=== PATIENT | female | born 1975 | race African-American/Black ===

== ENCOUNTER 2017-08-15 17:04 | Emergency (ER) | payer MEDICAID, OTHER ==
[~2017-08-15] VITALS: Ht 154.9 cm; Wt 102.5 kg
[2017-08-15 17:34] VITALS: BP 211/136
[2017-08-15] MEDS ORDERED: HYDROcodone/Acetamin 10/325 tab ORAL ONE (17:45)
--- NOTE | 2017-08-15 17:53 | Emergency Room Report ---
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 [place] that her shoulder was sprained After going to urgent care for pain medicine she was told that her blood pressure was high and refer to the emergency room Denies any chest pain denies any mid back pain Denies any tearing type sensation Denies any focal weakness Denies any fevers or chills denies any fall or trauma Allergies: Coded Allergies: ACETAMINOPHEN (Verified Adverse Reaction, Unknown, Nausea, 08/15/17) CODEINE (Verified Adverse Reaction, Unknown, nausea, 08/15/17) HYDROCODONE (Verified Adverse Reaction, Unknown, Nausea, 08/15/17) Patient History Past Medical History: see triage record Pertinent Family History: none Last Menstrual Period: 08/14/17 Now: No : 3 Para: 1 Reviewed Nursing Documentation: PMH: Agreed; PSxH: Agreed Nursing Documentation-PMH Past Medical History: No History, Except For Hx Cardiac Problems: No - Hx Hypertension: Yes History Of Psychiatric Problem: Yes - ANXIETY Review of Systems All Other Systems: negative except mentioned in HPI Physical Exam Vital Signs Date Time Temp Pulse Resp B/P (MAP) Pulse Ox O2 Delivery O2 Flow Rate FiO2 08/15/17 17:14 98.3 92 20 193/110 100 Room Air 98.2 Sp02 EP Interpretation: reviewed, normal General Appearance: well appearing, no apparent distress Head: normocephalic, atraumatic Eyes: bilateral eye PERRL, bilateral eye EOMI ENT: hearing grossly normal, normal pharynx, TMs + canals normal, uvula midline Neck: full range of motion, supple, no meningismus, no bony tend Respiratory: lungs clear, normal breath sounds, no rhonchi, no respiratory distress, no retraction, no accessory muscle use Cardiovascular #1: normal peripheral pulses, regular rate, rhythm, no edema, no gallop, no JVD, no murmur Gastrointestinal: normal bowel sounds, non tender, soft, no mass, no organomegaly, non-distended, no guarding, no hernia, no pulsatile mass, no rebound Genitourinary: no CVA tenderness Musculoskeletal: other - Patient has discomfort with trying to rotate the left shoulder has pain with flexion of the left upper arm appears to be fairly mechanical nature Neurologic: oriented x3, responsive, pear picker III-XII nml as tested, motor strength/ tone normal, sensory intact Psychiatric: mood/affect normal Skin: normal color, no rash, warm/dry, palpation normal Lymphatic: normal inspection, no adenopathy Medical Decision Making Diagnostic Impression: Primary Impression: ACS (acute coronary syndrome) ER Course Patient is a fairly complex patient with multiple differential to consideration including but not limited to cardiac cardiopulmonary and vascular emergencies Given the patient's left-sided shoulder pain and her hypertension Workup was initiated Patient's troponin is borderline EKG was also showing nonspecific findings Given the patient's presentation risk factors she will require further inpatient care Secondary to insurance purposes requires transfer Labs Test 08/15/17 18:00 White Blood Count 9.5 K/UL (4.8-10.8) Red Blood Count 4.19 M/UL (4.20-5.40) Hemoglobin 13.4 G/DL (12.0-16.0) Hematocrit 39.7 % (37.0-47.0) Mean Corpuscular Volume 95 FL (80-99) Mean Corpuscular Hemoglobin 31.9 PG (27.0-31.0) Mean Corpuscular Hemoglobin Concent 33.7 G/DL (32.0-36.0) Red Cell Distribution Width 12.5 % (11.6-14.8) Platelet Count 282 K/UL (150-450) Mean Platelet Volume 7.6 FL (6.5-10.1) Neutrophils (%) (Auto) 56.7 % (45.0-75.0) Lymphocytes (%) (Auto) 36.6 % (20.0-45.0) Monocytes (%) (Auto) 3.4 % (1.0-10.0) Eosinophils (%) (Auto) 1.7 % (0.0-3.0) Basophils (%) (Auto) 1.6 % (0.0-2.0) Sodium Level 139 MMOL/L (136-145) Potassium Level 3.2 MMOL/L (3.5-5.1) Chloride Level 102 MMOL/L (98-107) Carbon Dioxide Level 26 MMOL/L (21-32) Anion Gap 11 mmol/L (5-15) Blood Urea Nitrogen 15 mg/dL (7-18) Creatinine 0.9 MG/DL (0.55-1.30) Estimat Glomerular Filtration Rate > 60 mL/min (>60) Glucose Level 96 MG/DL (74-106) Calcium Level 9.1 MG/DL (8.5-10.1) Total Bilirubin 0.3 MG/DL (0.2-1.0) Aspartate Amino Transf (AST/SGOT) 24 U/L (15-37) Alanine Aminotransferase (ALT/SGPT) 25 U/L (12-78) Alkaline Phosphatase 79 U/L (46-116) Total Creatine Kinase 497 U/L (26-308) Creatine Kinase MB 1.8 NG/ML (0.0-3.6) Creatine Kinase MB Relative Index 0.3 Troponin I 0.048 ng/mL (0.000-0.056) Total Protein 8.4 G/DL (6.4-8.2) Albumin 3.9 G/DL (3.4-5.0) Globulin 4.5 g/dL Albumin/Globulin Ratio 0.9 (1.0-2.7) EKG Diagnostic Results Rate: normal Rhythm: NSR ST Segments: other - Nonspecific ST and T RIGHT ATRIAL ENLARGEMENT Rhythm Strip Diag. Results EP Interpretation: yes Rate: 77 Rhythm: NSR, no PVC's Chest X-Ray Diagnostic Results Chest X-Ray Diagnostic Results : Chest X-Ray Ordered: Yes # of Views/Limited/Complete: 1 View Indication: Chest Pain EP Interpretation: Yes Interpretation: no consolidation, no effusion Impression: No acute disease Electronically Signed by: Sid Ozuna DO Last Vital Signs Date Time Temp Pulse Resp B/P (MAP) Pulse Ox O2 Delivery O2 Flow Rate FiO2 08/15/17 17:34 98.6 74 14 211/136 100 Room Air 98.6 Status: improved Disposition: XFER SHT-TRM HOSP Condition: Improved Sid Ozuna DO Aug 15, 2017 17:53
[2017-08-15 18:19] LABS: BASOPHILS % (AUTO) 1.6 % (0.0-2.0); EOSINOPHILS % (AUTO) 1.7 % (0.0-3.0); HEMATOCRIT 39.7 % (37.0-47.0); HEMOGLOBIN 13.4 G/DL (12.0-16.0); LYMPHOCYTES % (AUTO) 36.6 % (20.0-45.0); MEAN CORPUSCULAR VOLUME 95 FL (80-99); MONOCYTES % (AUTO) 3.4 % (1.0-10.0); NEUTROPHILS % (AUTO) 56.7 % (45.0-75.0); PLATELET COUNT 282 K/UL (150-450); RED BLOOD COUNT 4.19 M/UL (4.20-5.40); RED CELL DISTRIBUTION WIDTH 12.5 % (11.6-14.8); WHITE BLOOD COUNT 9.5 K/UL (4.8-10.8)
[2017-08-15 18:21] LABS: ANION GAP 11 mmol/L (5-15); BLOOD UREA NITROGEN 15 mg/dL (7-18); CALCIUM 9.1 MG/DL (8.5-10.1); CARBON DIOXIDE 26 MMOL/L (21-32); CHLORIDE 102 MMOL/L (98-107); CREATININE 0.9 MG/DL (0.55-1.30); POTASSIUM 3.2 MMOL/L (3.5-5.1); SODIUM 139 MMOL/L (136-145)
[2017-08-15 18:34] LABS: ALANINE AMINOTRANSFERASE 25 U/L (12-78); ALBUMIN 3.9 G/DL (3.4-5.0); ALBUMIN/GLOBULIN RATIO 0.9 (1.0-2.7); ALKALINE PHOSPHATASE 79 U/L (46-116); ASPARTATE AMINO TRANSFERASE 24 U/L (15-37); BILIRUBIN,TOTAL 0.3 MG/DL (0.2-1.0); CKMB 1.8 NG/ML (0.0-3.6); CREATINE KINASE 497 U/L (26-308)
[2017-08-15 19:00] VITALS: BP 197/121
[2017-08-15] MEDS ORDERED: Ketorolac 30mg Inj IV ONE (19:15)
[2017-08-15] MEDS ORDERED: ACETAMINOPHEN1 EAC1 ORAL (19:44)
[2017-08-15] MEDS ORDERED: CHEWABLE-VITE1 EAC1 PO (19:44)
[2017-08-15 20:45] VITALS: BP 179/112
[2017-08-15] MEDS ORDERED: Aspirin Baby 81mg ORAL ONE (21:00)
[2017-08-15] MEDS ORDERED: Nitroglycerin 2% oint pkt TOPIC ONE (21:45)
[2017-08-15 22:47] VITALS: BP 212/124
[2017-08-15 23:25] VITALS: BP 203/98
--- NOTE | 2017-08-16 12:36 | Diagnostic Imaging Report ---
Indication: Chest pain Comparison: 08/14/2005 A single view chest radiograph was obtained. Findings: Cardiomediastinal appearance is within normal limits for age. Pulmonary vascularity is appropriate. The diaphragmatic contour is smooth and costophrenic angles are sharp. No pleural effusions are identified. The bones are unremarkable. Impression: No acute findings
--- NOTE | 2017-08-20 15:24 | Cardiology Report ---
APPROVED REPORT EKG Measurement Heart [id number] Normal sinus rhythm with sinus arrhythmia Right atrial enlargement Nonspecific T wave abnormality Abnormal ECG
== END 2017-08-15 23:25 | disposition short-term general hospital (02) ==
LOC: EMR 17:51
DX: I24.9 Acute ischemic heart disease, unspecified (principal); I10 Essential (primary) hypertension; F41.9 Anxiety disorder, unspecified; Z88.6 Allergy status to analgesic agent; Z88.5 Allergy status to narcotic agent
CPT/HCPCS: 36415; 71045; 80053; 82550; 82553; 84484; 85025; 93005; 96374; 96375; 99285; J0360; J1885; J2405

== ENCOUNTER 2019-08-06 21:39 | Inpatient (IN) | payer MEDICAID, OTHER ==
[~2019-08-06] VITALS: Ht 154.9 cm; Wt 97.5 kg
[~2019-08-06 21:39] MED LIST: ACETAMINOPHEN1 EAC1 ORAL; CHEWABLE-VITE1 EAC1 PO
[2019-08-06] MEDS ORDERED: LOSARTAN POTASS50 MG ORAL (21:57)
[2019-08-06] MEDS ORDERED: METOPROLOL SUC100 MG ORAL (21:57)
[2019-08-06] MEDS ORDERED: AMLODIPINE BESY10 MG ORAL (21:57)
[2019-08-06 22:05] VITALS: BP 119/76
--- NOTE | 2019-08-06 22:17 | Emergency Room Report ---
History of Present Illness General Chief Complaint: Generalized Weakness Source: Patient Present Illness HPI This is a 44-year-old female with history of high blood pressure. She presents with weakness and has nausea and vomiting. Onset for last 2 to 3 days. She was vomiting initially but able to keep popsicles in. She has increased urination and burning. [place] very weak. No appetite. No diarrhea. No fever but has chills. No chest pain. No shortness of breath or cough. No sick contact. Family history of diabetes. 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 Patient History Past Medical History: see triage record, old chart reviewed Past Surgical History: none Pertinent Family History: HTN, DM Social History: Denies: smoking Last Menstrual Period: 07/24/19 Now: No : 3 Para: 3 Immunizations: other Reviewed Nursing Documentation: PMH: Agreed; PSxH: Agreed Nursing Documentation-PMH Hx Cardiac Problems: No Hx Hypertension: Yes Hx Pacemaker: No Hx Asthma: No Hx COPD: No Hx Diabetes: No Hx Cancer: No Hx Gastrointestinal Problems: No Hx Dialysis: No History Of Psychiatric Problem: Yes - anxiety Hx Neurological Problems: No Hx Cerebrovascular Accident: No Hx Seizures: No Review of Systems Constitutional: Reports: chills, malaise, weakness Eye: Denies: eye pain, blurred vision ENT: Denies: ear pain, nose congestion, throat swelling Respiratory: Denies: cough, shortness of breath Cardiovascular: Denies: chest pain, palpitations Gastrointestinal: Denies: abdominal pain, diarrhea, nausea, vomiting Genitourinary: Reports: frequency, pain Musculoskeletal: Denies: back pain, joint pain Skin: Denies: rash Neurological: Denies: headache, numbness Endocrine: Denies: increased thirst, increased urine Hematologic/Lymphatic: Denies: easy bruising All Other Systems: negative except mentioned in HPI Physical Exam Vital Signs Date Time Temp Pulse Resp B/P (MAP) Pulse Ox O2 Delivery O2 Flow Rate FiO2 08/06/19 21:45 98.2 101 22 119/76 (90) 96 Room Air Vitals unremarkable Sp02 EP Interpretation: reviewed, normal General Appearance: well appearing, no apparent distress, alert, obese Head: normocephalic, atraumatic Eyes: bilateral eye PERRL, bilateral eye EOMI ENT: hearing grossly normal, normal pharynx Neck: full range of motion, supple, no meningismus Respiratory: chest non-tender, lungs clear, normal breath sounds Cardiovascular #1: regular rate, rhythm, no murmur Gastrointestinal: normal bowel sounds, non tender, no mass, no organomegaly, no bruit, non-distended Musculoskeletal: back normal, normal range of motion, gait/station normal Psychiatric: mood/affect normal Medical Decision Making Diagnostic Impression: Primary Impression: New onset type 2 diabetes mellitus Additional Impressions: Uncontrolled diabetes mellitus Qualified Codes: E11.65 - Type 2 diabetes mellitus with hyperglycemia Dehydration STEPHANIE (acute kidney injury) Morbid obesity with BMI of 40.0-44.9, adult UTI (urinary tract infection) Qualified Codes: N30.00 - Acute cystitis without hematuria Carol cystitis ER Course This patient presents with severe dehydration and new onset diabetes uncontrolled. Probably worsened secondary to UTI. Glucose improving. Will admit for IV hydration and further monitoring. I discussed the case with Dr. Arcos who will admit. Rhythm Strip Diag. Results EP Interpretation: yes Rate: 80 Rhythm: NSR, no PVC's, no ectopy Chest X-Ray Diagnostic Results Chest X-Ray Diagnostic Results : Chest X-Ray Ordered: Yes # of Views/Limited/Complete: 1 View Indication: Shortness of Breath EP Interpretation: Yes Interpretation: no consolidation, no effusion, no pneumothorax, no acute cardiopulmonary disease Impression: No acute disease Electronically Signed by: Freddy Brown MD Last Vital Signs Date Time Temp Pulse Resp B/P (MAP) Pulse Ox O2 Delivery O2 Flow Rate FiO2 08/06/19 22:05 98.2 101 22 119/76 96 Room Air Status: improved Disposition: ADMITTED INPATIENT Condition: Serious Freddy Brown MD August 06, 2019 22:17
[2019-08-06 22:53] LABS: APPEARANCE,URINE SLIGHTLY CLOUDY; BILIRUBIN, URINE NEGATIVE (NEGATIVE); COLOR,URINE PALE YELLOW; GLUCOSE, URINE (UA) 4+ (NEGATIVE); KETONES,URINE 3+ (NEGATIVE); LEUKOCYTE ESTERASE ,URINE 1+ (NEGATIVE); NITRITE,URINE NEGATIVE (NEGATIVE); PH,URINE 5 (4.5-8.0); PROTEIN,URINE 1+ (NEGATIVE); UROBILINOGEN,URINE NORMAL MG/DL (0.0-1.0)
[2019-08-06 23:04] LABS: ANION GAP 18 mmol/L (5-15); BLOOD UREA NITROGEN 25 mg/dL (7-18); CALCIUM 9.3 MG/DL (8.5-10.1); CARBON DIOXIDE 19 MMOL/L (21-32); CHLORIDE 86 MMOL/L (98-107); CREATININE 1.5 MG/DL (0.55-1.30); POTASSIUM 4.7 MMOL/L (3.5-5.1); SODIUM 123 MMOL/L (136-145)
[2019-08-06 23:06] LABS: ALANINE AMINOTRANSFERASE 39 U/L (12-78); ALBUMIN 3.4 G/DL (3.4-5.0); ALBUMIN/GLOBULIN RATIO 0.6 (1.0-2.7); ALKALINE PHOSPHATASE 120 U/L (46-116); ASPARTATE AMINO TRANSFERASE 30 U/L (15-37); BILIRUBIN,TOTAL 0.7 MG/DL (0.2-1.0)
[2019-08-06 23:13] LABS: HEMATOCRIT 40.8 % (37.0-47.0); HEMOGLOBIN 13.1 G/DL (12.0-16.0); MEAN CORPUSCULAR VOLUME 101 FL (80-99); PLATELET COUNT 192 K/UL (150-450); RED BLOOD COUNT 4.05 M/UL (4.20-5.40); RED CELL DISTRIBUTION WIDTH 12.4 % (11.6-14.8); WHITE BLOOD COUNT 17.8 K/UL (4.8-10.8)
[2019-08-06] MEDS ORDERED: Fluconazole 100mg tab ORAL ONE (23:15)
[2019-08-06] MEDS ORDERED: cefTRIAXone 1 GM in NS 55 ML IVPB ONE (23:15)
[2019-08-06] MEDS ORDERED: Insulin Human Regular 100units/ml 3ml IV ONE (23:30)
[2019-08-07 00:48] VITALS: BP 124/77
[2019-08-07 01:14] LABS: ANION GAP 15 mmol/L (5-15); BLOOD UREA NITROGEN 21 mg/dL (7-18); CALCIUM 8.7 MG/DL (8.5-10.1); CARBON DIOXIDE 18 MMOL/L (21-32); CHLORIDE 95 MMOL/L (98-107); CREATININE 1.1 MG/DL (0.55-1.30); POTASSIUM 4.9 MMOL/L (3.5-5.1); SODIUM 128 MMOL/L (136-145)
[2019-08-07] MEDS ORDERED: Insulin Human Regular 100units/ml 3ml IV ONE (01:30)
[2019-08-07 04:00] VITALS: BP 136/82
[2019-08-07] MEDS: NovoLOG Insulin Flexpen SUBQ SCH ×4 (05:38→21:05)
[2019-08-07 08:00] VITALS: BP 134/87
[2019-08-07] MEDS: Docusate 100mg cap ORAL SCH ×2 (08:59→17:16)
[2019-08-07] MEDS: Metoprolol Succinate XL 100mg tab ORAL SCH (09:00)
[2019-08-07] MEDS: Losartan 50mg tab ORAL SCH (09:00)
--- NOTE | 2019-08-07 10:38 | Consultation ---
History of Present Illness General Chief Complaint: Generalized Weakness Reason for Consultation: STEPHANIE, hyponatremia Present Illness HPI This is a 44 year old female with the past medical history of diebetes mellitus , hypertension and hyperlipidemia presenting with several days of nausea, emesis , and decreasing oral intake. She notes generalized weakness and pain with urination. No fevers, chills, diarrhea, chest pain or shortness of breath. On presentation she was markedly hyperglycemic with anion gap metabolic acidosis , hyponatremic with elevated Cr. She was found to have UTI and admitted for further management. S/p 2L NS and cefriaxone in the ED. Allergies: Coded Allergies: ACETAMINOPHEN (Verified Adverse Reaction, Unknown, Nausea, 08/15/17) CODEINE (Verified Adverse Reaction, Unknown, nausea, 08/15/17) HYDROCODONE (Verified Adverse Reaction, Unknown, Nausea, 08/15/17) Medication History Scheduled Amlodipine Besylate* (Amlodipine Besylate*), 10 MG ORAL DAILY, (Reported) Losartan Potassium* (Losartan Potassium*), 50 MG ORAL DAILY, (Reported) Metoprolol Succinate* (Metoprolol Succinate*), 100 MG ORAL DAILY, (Reported) Discontinued Medications Acetaminophen/Diphenhydramine (Acetaminophen Pm Geltab), 1 TAB ORAL QHS PRN for insomnia, (Reported) Discontinued Reason: MD discontinued med Multivitamin (Chewable-Shahram), 1 EACH PO DAILY, (Reported) Discontinued Reason: Pt had allergic rxn Patient History Healthcare decision maker Resuscitation status Advanced Directive on File Review of Systems All Other Systems: negative except mentioned in HPI Physical Exam General Appearance: WD/WN, no apparent distress Lines, tubes and drains: peripheral HEENT: normocephalic, atraumatic Neck: non-tender Respiratory/Chest: chest wall non-tender, lungs clear Cardiovascular/Chest: normal peripheral pulses, normal rate, regular rhythm Abdomen: normal bowel sounds, non tender, soft, no organomegaly Extremities: non-tender Skin Exam: normal pigmentation Neurologic: alert, oriented x 3 Last 24 Hour Vital Signs Date Time Temp Pulse Resp B/P (MAP) Pulse Ox O2 Delivery O2 Flow Rate FiO2 08/07/19 09:00 100 134/87 08/07/19 09:00 134/87 08/07/19 09:00 100 134/87 08/07/19 09:00 Room Air 08/07/19 08:00 98.1 100 20 134/87 (103) 99 08/07/19 04:00 97.9 92 20 136/82 (100) 96 08/07/19 02:29 Room Air 08/07/19 00:48 98.2 97 22 124/77 97 Room Air 08/06/19 22:05 98.2 101 22 119/76 96 Room Air 08/06/19 22:05 101 22 Room Air 08/06/19 21:45 98.2 101 22 119/76 (90) 96 Room Air Intake and Output 08/06/19 08/07/19 19:00 07:00 Intake Total 900 ml Output Total 700 ml Balance 200 ml Intake Oral 900 ml Output Urine Total 700 ml # Voids 2 Laboratory Tests Test 08/06/19 22:15 08/07/19 00:30 White Blood Count 17.8 K/UL (4.8-10.8) H Red Blood Count 4.05 M/UL (4.20-5.40) L Hemoglobin 13.1 G/DL (12.0-16.0) Hematocrit 40.8 % (37.0-47.0) Mean Corpuscular Volume 101 FL (80-99) H Mean Corpuscular Hemoglobin 32.3 PG (27.0-31.0) H Mean Corpuscular Hemoglobin Concent 32.1 G/DL (32.0-36.0) Red Cell Distribution Width 12.4 % (11.6-14.8) Platelet Count 192 K/UL (150-450) Mean Platelet Volume 9.6 FL (6.5-10.1) Neutrophils (%) (Auto) % (45.0-75.0) Lymphocytes (%) (Auto) % (20.0-45.0) Monocytes (%) (Auto) % (1.0-10.0) Eosinophils (%) (Auto) % (0.0-3.0) Basophils (%) (Auto) % (0.0-2.0) Differential Total Cells Counted 100 Neutrophils % (Manual) 80 % (45-75) H Lymphocytes % (Manual) 10 % (20-45) L Monocytes % (Manual) 5 % (1-10) Eosinophils % (Manual) 0 % (0-3) Basophils % (Manual) 0 % (0-2) Band Neutrophils 5 % (0-8) Platelet Estimate Adequate Platelet Morphology Normal Red Blood Cell Morphology Normal Urine Color Pale yellow Urine Appearance Slightly cloudy Urine pH 5 (4.5-8.0) Urine Specific [place] 1.010 (1.005-1.035) Urine Protein 1+ (NEGATIVE) H Urine Glucose (UA) 4+ (NEGATIVE) H Urine Ketones 3+ (NEGATIVE) H Urine Blood 3+ (NEGATIVE) H Urine Nitrite Negative (NEGATIVE) Urine Bilirubin Negative (NEGATIVE) Urine Urobilinogen Normal MG/DL (0.0-1.0) Urine Leukocyte Esterase 1+ (NEGATIVE) H Urine RBC 20-30 /HPF (0 - 2) H Urine WBC 15-20 /HPF (0 - 2) H Urine Squamous Epithelial Cells Few /LPF (NONE/OCC) Urine Amorphous Sediment Moderate /LPF (NONE) H Urine Bacteria Many /HPF (NONE) H Urine Yeast Moderate /HPF (NONE) H Urine HCG, Qualitative Negative (NEGATIVE) Sodium Level 123 MMOL/L (136-145) L 128 MMOL/L (136-145) L Potassium Level 4.7 MMOL/L (3.5-5.1) 4.9 MMOL/L (3.5-5.1) Chloride Level 86 MMOL/L (98-107) L 95 MMOL/L (98-107) L Carbon Dioxide Level 19 MMOL/L (21-32) L 18 MMOL/L (21-32) L Anion Gap 18 mmol/L (5-15) H 15 mmol/L (5-15) Blood Urea Nitrogen 25 mg/dL (7-18) H 21 mg/dL (7-18) H Creatinine 1.5 MG/DL (0.55-1.30) H 1.1 MG/DL (0.55-1.30) Estimat Glomerular Filtration Rate 45.3 mL/min (>60) > 60 mL/min (>60) Glucose Level 832 MG/DL (74-106) *H 612 MG/DL (74-106) #*H Calcium Level 9.3 MG/DL (8.5-10.1) 8.7 MG/DL (8.5-10.1) Total Bilirubin 0.7 MG/DL (0.2-1.0) Aspartate Amino Transf (AST/SGOT) 30 U/L (15-37) Alanine Aminotransferase (ALT/SGPT) 39 U/L (12-78) Alkaline Phosphatase 120 U/L (46-116) H Troponin I 0.000 ng/mL (0.000-0.056) Total Protein 8.9 G/DL (6.4-8.2) H Albumin 3.4 G/DL (3.4-5.0) Globulin 5.5 g/dL Albumin/Globulin Ratio 0.6 (1.0-2.7) L Height (Feet): 5 Height (Inches): 1.00 Weight (Pounds): 215 Medications Current Medications Medications (Trade) Dose Ordered Sig/Jenifer Route PRN Reason Start Time Stop Time Status Last Admin Dose Admin Amlodipine Besylate (Norvasc) 10 mg DAILY ORAL 08/07/19 09:00 09/06/19 08:59 08/07/19 09:00 Dextrose (Dextrose 50%) 25 ml Q30M PRN IV Hypoglycemia 08/07/19 03:15 11/05/19 03:14 Dextrose (Dextrose 50%) 50 ml Q30M PRN IV Hypoglycemia 08/07/19 03:15 11/05/19 03:14 Docusate Sodium (Colace) 100 mg TWICE A DAY ORAL 08/07/19 09:00 09/06/19 08:59 08/07/19 08:59 Insulin Aspart (NovoLOG) BEFORE MEALS AND HS SUBQ 08/07/19 06:30 11/05/19 06:29 08/07/19 05:38 Losartan Potassium (Cozaar) 50 mg DAILY ORAL 08/07/19 09:00 09/06/19 08:59 08/07/19 09:00 Metoprolol Succinate (Toprol XL) 100 mg DAILY ORAL 08/07/19 09:00 11/05/19 08:59 08/07/19 09:00 Sodium Chloride 1,000 ml @ 50 mls/hr Q20H IV 08/07/19 04:00 09/06/19 03:59 08/07/19 04:04 Zolpidem Tartrate (Ambien) 5 mg HSPRN PRN ORAL Insomnia 08/07/19 03:15 08/14/19 03:14 Assessment/Plan Diagnosis [place] I: #STEPHANIE due to pre-renal azotemia in the setting of volume depletion and hyperglycemia #pseudohyponatremia in the setting of hyperglycemia #anionn gap metabolic acidosis due to DKA #UTI #DM #Leukocytosis #HLD - s/p 2L NS - continue NS at 100cc/hr - monitor BG, electrolytes and renal function closely - will check PM lytes - continue zosyn - follow urine culture - januvia 100mg daily - metformin 850 TID - ISS - on metop 100mg daily - amlodipine 10mg daily - losartan 50mg daily - monitor blood pressure - monitor BMP, mag and phos daily - avoid nephrotoxins Time spent 70 minutes Katy Steven M.D. August 07, 2019 10:38
--- NOTE | 2019-08-07 10:56 | Diagnostic Imaging Report ---
Procedure: XRAY Chest 1v Reason for study: Reason For Exam: SOB Comparison films: 08/15/2017. FINDINGS: A single one view chest is obtained. Vascularity is normal. Minimal linear atelectasis noted in the lung bases. Cardiac and mediastinal silhouette are within normal limits. CP angles are sharp. The bony thorax appear unremarkable. IMPRESSION: Minimal linear basilar atelectasis.
[2019-08-07 12:00] VITALS: BP 102/69
[2019-08-07] MEDS ORDERED: Lactulose 20gm/30ml UDC ORAL PRN (13:15)
[2019-08-07] MEDS: Piperacillin/Tazobactam 3.375 GM in NS 110 ML IVPB SCH ×2 (14:12→21:04)
[2019-08-07 16:00] VITALS: BP 120/74
[2019-08-07 16:43] LABS: ANION GAP 11 mmol/L (5-15); BLOOD UREA NITROGEN 18 mg/dL (7-18); CALCIUM 8.5 MG/DL (8.5-10.1); CARBON DIOXIDE 22 MMOL/L (21-32); CHLORIDE 98 MMOL/L (98-107); CHOLESTEROL 153 MG/DL (< 200); HDL CHOLESTEROL 14 MG/DL (40-60); PHOSPHORUS 2.2 MG/DL (2.5-4.9); POTASSIUM 3.9 MMOL/L (3.5-5.1); SODIUM 131 MMOL/L (136-145); TRIGLYCERIDES 173 MG/DL (30-150)
--- NOTE | 2019-08-07 18:00 | History and Physical Report ---
DATE OF ADMISSION: 08/07/2019 HISTORY OF PRESENT ILLNESS: This is a 44-year-old female with history of hypertension. She came to the hospital with nausea, vomiting. The patient states that she is also having dysuria as well as frequency of micturition. She was admitted to the hospital after being found to be significant hyperglycemia as well as hyponatremia. ALLERGIES: To Tylenol, codeine, hydrocodone. HOME MEDICATIONS: Reviewed and reconciled in chart include only antihypertensives. FAMILY HISTORY: Notable for diabetes. SOCIAL HISTORY: No history of alcohol or tobacco usage. PHYSICAL EXAMINATION: GENERAL: Reveals 44-year-old female. VITAL SIGNS: Blood pressure 102/60, heart rate is 100, respirations are 26, she is afebrile, O2 saturation 90% on room air. HEENT: Unremarkable. She has mild exophthalmos. CHEST: Clear breath sounds bilaterally ABDOMEN: Soft. EXTREMITIES: There is no edema. LABORATORY AND DIAGNOSTIC DATA: White count 17.8, hemoglobin of 13. Creatinine of 1.1 now, previously 1.5. Sodium 128, and glucose 612. Urinalysis shows pyuria. X-ray chest shows atelectasis. IMPRESSION: 1. Urinary tract infection. 2. New-onset diabetes mellitus. 3. . 4. Rule out hypothyroidism. 5. Hyponatremia. 6. Renal insufficiency. DISCUSSION: Admit to the hospital. Start IV fluid hydration, insulin sliding scale. Broad-spectrum antibiotics. We will consult ID and Nephrology. Add stool softeners. Start metformin and Januvia, we will follow. Robel Arcos M.D. DR: Kalpesh JOB#: [id number] CC:
--- NOTE | 2019-08-07 18:30 | Consultation ---
DATE OF CONSULTATION: 08/07/2019 INFECTIOUS DISEASES CONSULTATION CONSULTING PHYSICIAN: Velvet Anne MD. REFERRING PHYSICIAN: Robel Arcos MD. REASON FOR CONSULTATION: Urinary tract infection. HISTORY OF PRESENTING ILLNESS: This is a 44-year-old lady with newly diagnosed diabetes and high blood pressure, who comes in because she had fever and chills along with nausea, burning in the urine, and left-sided flank pain. She was found to have urinary tract infection with possible pyelonephritis and an Infectious Diseases consultation has been obtained for antibiotics. She also has some mild shortness of breath and there is a concern for COVID-19 pneumonia. PAST MEDICAL HISTORY: History of hypertension. MEDICATIONS: As an inpatient, she is on amlodipine, losartan, metoprolol, docusate, insulin, and Ambien. ALLERGIES: 1. Acetaminophen. 2. Codeine. 3. Hydrocodone. SOCIAL HISTORY: She does not smoke cigarettes. She does not drink alcohol. She used to smoke marijuana, but she quit that. FAMILY HISTORY: Positive for diabetes. REVIEW OF SYSTEMS: RESPIRATORY: She had fever and chills. No cough. She had mild shortness of breath that resolved. No chest pain. CARDIAC: No chest pain. No palpitation. No dizziness. No syncope. GASTROINTESTINAL: She had nausea that is resolved. No vomiting. No abdominal pain. No diarrhea. GENITOURINARY: She had dysuria, but no hematuria. MUSCULOSKELETAL: She complains of left-sided back pain. PHYSICAL EXAMINATION: VITAL SIGNS: Temperature of 98.1, T-max of 98.2, pulse of 100, respiratory rate 20, blood pressure 134/87, O2 saturation of 99% on room air. GENERAL: Examination deferred due to possibility of COVID-19. LABORATORY AND DIAGNOSTIC DATA: White count 17.8, hemoglobin 13.1, hematocrit 40.8, MCV 101, platelet count of 192,000 with neutrophils of 80%. Sodium 128, potassium 4.9, chloride 95, bicarb 18, BUN 21, creatinine 1.1. Glucose of 832 yesterday. Glucose of 612 today. Calcium 8.7. Total bilirubin 0.7, AST 30, ALT 39, and alkaline phosphatase 120. Troponin zero. Total protein 8.9, albumin 3.4. UA is showing 15-20 white cells. Chest x-ray is showing minimal linear basal atelectasis. ASSESSMENT: This is a 44-year-old lady with history of hypertension with newly diagnosed diabetes, who comes in and is found to have: 1. Urinary tract infection. 2. Newly diagnosed diabetes. 3. Hypertension. PLAN: 1. We will order urine cultures. 2. We will start the patient on Zosyn. 3. Continue isolation. 4. COVID-19 test is pending. I would like to thank, Dr. Arcos, for this consultation. Velvet Anne M.D. DR: Salvatore JOB#: [id number] CC:
[2019-08-07 20:00] VITALS: BP 136/80
[2019-08-07] MEDS: Zolpidem 5mg tab ORAL PRN (21:04)
[2019-08-08] VITALS: BP 129/80
[2019-08-08 04:00] VITALS: BP 121/84
[2019-08-08] MEDS: Piperacillin/Tazobactam 3.375 GM in NS 110 ML IVPB SCH ×3 (05:40→21:12)
[2019-08-08] MEDS: NovoLOG Insulin Flexpen SUBQ SCH ×4 (05:50→21:12)
[2019-08-08 08:00] VITALS: BP 146/85
[2019-08-08 08:42] LABS: BASOPHILS % (AUTO) 1.1 % (0.0-2.0); EOSINOPHILS % (AUTO) 0.5 % (0.0-3.0); HEMATOCRIT 34.6 % (37.0-47.0); HEMOGLOBIN 12.1 G/DL (12.0-16.0); LYMPHOCYTES % (AUTO) 12.1 % (20.0-45.0); MEAN CORPUSCULAR VOLUME 92 FL (80-99); MONOCYTES % (AUTO) 12.8 % (1.0-10.0); NEUTROPHILS % (AUTO) 73.5 % (45.0-75.0); PLATELET COUNT 181 K/UL (150-450); RED BLOOD COUNT 3.76 M/UL (4.20-5.40); RED CELL DISTRIBUTION WIDTH 10.8 % (11.6-14.8); WHITE BLOOD COUNT 14.1 K/UL (4.8-10.8)
[2019-08-08 09:04] LABS: ANION GAP 11 mmol/L (5-15); BLOOD UREA NITROGEN 13 mg/dL (7-18); CARBON DIOXIDE 23 MMOL/L (21-32); CHLORIDE 101 MMOL/L (98-107); CREATININE 0.9 MG/DL (0.55-1.30); POTASSIUM 3.9 MMOL/L (3.5-5.1); SODIUM 135 MMOL/L (136-145)
[2019-08-08 09:16] LABS: PHOSPHORUS 2.1 MG/DL (2.5-4.9)
--- NOTE | 2019-08-08 09:19 | Pulmonology Progress Note ---
Subjective Interval Events: None new; sugars better Constitutional: Reports: no symptoms HEENT: Repors: no symptoms Respiratory: Reports: no symptoms Cardiovascular: Reports: no symptoms Gastrointestinal/Abdominal: Reports: no symptoms Allergies: Coded Allergies: ACETAMINOPHEN (Verified Adverse Reaction, Unknown, Nausea, 08/15/17) CODEINE (Verified Adverse Reaction, Unknown, nausea, 08/15/17) HYDROCODONE (Verified Adverse Reaction, Unknown, Nausea, 08/15/17) Objective Last 24 Hour Vital Signs Date Time Temp Pulse Resp B/P (MAP) Pulse Ox O2 Delivery O2 Flow Rate FiO2 08/08/19 08:00 97.7 96 20 146/85 (105) 96 08/08/19 04:00 98.2 90 24 121/84 (96) 97 08/08/19 00:00 98.8 86 20 129/80 (96) 98 08/07/19 21:00 Room Air 08/07/19 20:00 98.6 97 24 136/80 (98) 98 08/07/19 16:00 98.1 94 24 120/74 (89) 98 08/07/19 12:00 97.7 109 36 102/69 (80) 98 Intake and Output 08/07/19 08/08/19 19:00 07:00 Intake Total 2310.0 ml 800 ml Output Total 750 ml Balance 1560.0 ml 800 ml Intake Oral 1800 ml 800 ml IV Total 510.0 ml Output Urine Total 750 ml # Voids 3 3 # Bowel Movements 2 General Appearance: no acute distress HEENT: normocephalic Respiratory: chest wall non-tender Cardiovascular: normal peripheral pulses Abdomen: normal bowel sounds Microbiology Date/Time Source Procedure Growth Status 08/06/19 22:15 Urine,Clean Catch Urine Culture - Preliminary Gram Negative Zbigniew Resulted Laboratory Tests 08/07/19 16:00: Sodium Level 131L, Potassium Level 3.9, Chloride Level 98, Carbon Dioxide Level 22, Anion Gap 11, Blood Urea Nitrogen 18, Creatinine 1.0, Estimat Glomerular Filtration Rate > 60, Glucose Level 359#H, Hemoglobin A1c 11.2H, Calcium Level 8.5, Phosphorus Level 2.2L, Magnesium Level 2.4, Triglycerides Level 173H, Cholesterol Level 153, LDL Cholesterol 102H, HDL Cholesterol 14L, Cholesterol/ HDL Ratio 10.9H 08/08/19 08:10: Sodium Level 135L, Potassium Level 3.9, Chloride Level 101, Carbon Dioxide Level 23, Anion Gap 11, Blood Urea Nitrogen 13, Creatinine 0.9, Estimat Glomerular Filtration Rate > 60, Glucose Level 383H, Calcium Level 8.0L, Phosphorus Level 2.1L, Magnesium Level 2.4, White Blood Count 14.1H, Red Blood Count 3.76L, Hemoglobin 12.1, Hematocrit 34.6L, Mean Corpuscular Volume 92#, Mean Corpuscular Hemoglobin 32.2H, Mean Corpuscular Hemoglobin Concent 35.0, Red Cell Distribution Width 10.8L, Platelet Count 181, Mean Platelet Volume 8.4 , Neutrophils (%) (Auto) 73.5, Lymphocytes (%) (Auto) 12.1L, Monocytes (%) (Auto ) 12.8H, Eosinophils (%) (Auto) 0.5, Basophils (%) (Auto) 1.1, Thyroid Stimulating Hormone (TSH) 0.767, Free Thyroxine [Pending] Current Medications Medications (Trade) Dose Ordered Sig/Jenifer Route PRN Reason Start Time Stop Time Status Last Admin Dose Admin Amlodipine Besylate (Norvasc) 10 mg DAILY ORAL 08/07/19 09:00 09/06/19 08:59 08/07/19 09:00 Dextrose (Dextrose 50%) 25 ml Q30M PRN IV Hypoglycemia 08/07/19 03:15 11/05/19 03:14 Dextrose (Dextrose 50%) 50 ml Q30M PRN IV Hypoglycemia 08/07/19 03:15 11/05/19 03:14 Docusate Sodium (Colace) 100 mg TWICE A DAY ORAL 08/07/19 09:00 09/06/19 08:59 08/07/19 17:16 Insulin Aspart (NovoLOG) BEFORE MEALS AND HS SUBQ 08/07/19 06:30 11/05/19 06:29 08/08/19 05:50 Lactulose (Cephulac) 20 gm TIDPRN PRN ORAL Constipation 08/07/19 13:15 09/06/19 13:14 08/07/19 14:12 Losartan Potassium (Cozaar) 50 mg DAILY ORAL 08/07/19 09:00 09/06/19 08:59 08/07/19 09:00 Metformin HCl (Glucophage) 850 mg TIAC ORAL 08/07/19 16:30 09/06/19 16:29 08/08/19 05:41 Metoprolol Succinate (Toprol XL) 100 mg DAILY ORAL 08/07/19 09:00 11/05/19 08:59 08/07/19 09:00 Piperacillin Sod/ Tazobactam Sod 3.375 gm/Sodium Chloride 110 ml @ 27.5 mls/hr EVERY 8 HOURS IVPB 08/07/19 14:00 08/12/19 13:59 08/08/19 05:40 Sitagliptin Phosphate (Januvia) 100 mg ACBREAKFAST ORAL 08/08/19 06:30 09/07/19 06:29 08/08/19 05:41 Sodium Chloride 1,000 ml @ 100 mls/hr Q10H IV 08/07/19 13:11 09/06/19 13:10 08/07/19 21:06 Zolpidem Tartrate (Ambien) 5 mg HSPRN PRN ORAL Insomnia 08/07/19 03:15 08/14/19 03:14 08/07/19 21:04 Assessment/Plan Assessment/Plan IMPRESSION: 1. Urinary tract infection. 2. New-onset diabetes mellitus. 3. Hyponatremia 4. Rule out hypothyroidism. 5. Hypochloremia 6. Renal insufficiency. DISCUSSION: Continue IV fluid hydration, insulin sliding scale. Broad-spectrum antibiotics. Seen by ID and Nephrology. Added stool softeners. Continue metformin and Januvia, I will follow. Await COVID 19 pcr Robel Arcos M.D. Robel Arcos MD August 08, 2019 09:19
[2019-08-08] MEDS: Losartan 50mg tab ORAL SCH (09:43)
[2019-08-08] MEDS: Metoprolol Succinate XL 100mg tab ORAL SCH (09:43)
[2019-08-08] MEDS: Docusate 100mg cap ORAL SCH ×2 (09:44→17:34)
[2019-08-08] MEDS ORDERED: NS 275ml ONE (09:47)
--- NOTE | 2019-08-08 11:46 | Nephrology Progress Note ---
Assessment/Plan Plan #STEPHANIE due to pre-renal azotemia in the setting of volume depletion and hyperglycemia #pseudohyponatremia in the setting of hyperglycemia #anionn gap metabolic acidosis due to DKA #UTI #DM #Leukocytosis #HLD - replete phos - continue NS at 50cc/hr - monitor BG, electrolytes and renal function closely - continue zosyn - follow urine culture - januvia 100mg daily - metformin 850 TID - ISS - on metop 100mg daily - amlodipine 10mg daily - losartan 50mg daily - monitor blood pressure - monitor BMP, mag and phos daily - avoid nephrotoxins Time spent 70 minutes Subjective ROS Limited/Unobtainable: No Constitutional: Denies: no symptoms, chills, diaphoresis, fever, malaise, weakness, other HEENT: Denies: no symptoms, eye pain, blurred vision, tearing, double vision, ear pain, ear discharge, nose pain, nose congestion, throat pain, throat swelling, mouth pain, mouth swelling, other Genitourinary: Denies: no symptoms, burning, discharge, frequency, flank pain, hematuria, incontinence, pain, urgency, other Neurologic/Psychiatric: Denies: no symptoms, anxiety, depressed, emotional problems, headache, numbness, paresthesia, pre-existing deficit, seizure, tingling, tremors, weakness, other Subjective Feeling much better today BG trend downtrending less dysuria Objective Objective Last 24 Hour Vital Signs Date Time Temp Pulse Resp B/P (MAP) Pulse Ox O2 Delivery O2 Flow Rate FiO2 08/08/19 09:43 96 146/85 08/08/19 09:43 146/85 08/08/19 09:43 96 146/85 08/08/19 09:00 Room Air 08/08/19 08:00 97.7 96 20 146/85 (105) 96 08/08/19 04:00 98.2 90 24 121/84 (96) 97 08/08/19 00:00 98.8 86 20 129/80 (96) 98 08/07/19 21:00 Room Air 08/07/19 20:00 98.6 97 24 136/80 (98) 98 08/07/19 16:00 98.1 94 24 120/74 (89) 98 08/07/19 12:00 97.7 109 36 102/69 (80) 98 Intake and Output 5/29/20 5/30/20 19:00 07:00 Intake Total 2310.0 ml 800 ml Output Total 750 ml Balance 1560.0 ml 800 ml Intake Oral 1800 ml 800 ml IV Total 510.0 ml Output Urine Total 750 ml # Voids 3 3 # Bowel Movements 2 Laboratory Tests 08/07/19 16:00: Sodium Level 131L, Potassium Level 3.9, Chloride Level 98, Carbon Dioxide Level 22, Anion Gap 11, Blood Urea Nitrogen 18, Creatinine 1.0, Estimat Glomerular Filtration Rate > 60, Glucose Level 359#H, Hemoglobin A1c 11.2H, Calcium Level 8.5, Phosphorus Level 2.2L, Magnesium Level 2.4, Triglycerides Level 173H, Cholesterol Level 153, LDL Cholesterol 102H, HDL Cholesterol 14L, Cholesterol/ HDL Ratio 10.9H 08/08/19 08:10: Sodium Level 135L, Potassium Level 3.9, Chloride Level 101, Carbon Dioxide Level 23, Anion Gap 11, Blood Urea Nitrogen 13, Creatinine 0.9, Estimat Glomerular Filtration Rate > 60, Glucose Level 383H, Calcium Level 8.0L, Phosphorus Level 2.1L, Magnesium Level 2.4, White Blood Count 14.1H, Red Blood Count 3.76L, Hemoglobin 12.1, Hematocrit 34.6L, Mean Corpuscular Volume 92#, Mean Corpuscular Hemoglobin 32.2H, Mean Corpuscular Hemoglobin Concent 35.0, Red Cell Distribution Width 10.8L, Platelet Count 181, Mean Platelet Volume 8.4 , Neutrophils (%) (Auto) 73.5, Lymphocytes (%) (Auto) 12.1L, Monocytes (%) (Auto ) 12.8H, Eosinophils (%) (Auto) 0.5, Basophils (%) (Auto) 1.1, Thyroid Stimulating Hormone (TSH) 0.767, Free Thyroxine 1.06 Height (Feet): 5 Height (Inches): 1.00 Weight (Pounds): 215 General Appearance: WD/WN, no apparent distress, overweight EENT: PERRL/EOMI Neck: non-tender, normal inspection Cardiovascular: normal peripheral pulses, no JVD Respiratory/Chest: chest wall non-tender, lungs clear Abdomen: normal bowel sounds, non tender, soft, no organomegaly Extremities: normal range of motion Neurologic: alert, oriented x 3 Pirouz,Aslan M.D. August 08, 2019 11:46
[2019-08-08 12:00] VITALS: BP 130/89
[2019-08-08] MEDS ORDERED: Sodium Phosphate 30 MM in NS 275 ML IVPB SCH (13:00)
[2019-08-08 16:00] VITALS: BP 134/85
[2019-08-08 20:00] VITALS: BP 139/86
[2019-08-08] MEDS: Zolpidem 5mg tab ORAL PRN (21:12)
[2019-08-09] MEDS: Piperacillin/Tazobactam 3.375 GM in NS 110 ML IVPB SCH (06:20)
[2019-08-09] MEDS: NovoLOG Insulin Flexpen SUBQ SCH ×4 (06:26→21:16)
--- NOTE | 2019-08-09 07:44 | Pulmonology Progress Note ---
Subjective ROS Limited/Unobtainable: No Interval Events: None new; sugars better Constitutional: Reports: no symptoms HEENT: Repors: no symptoms Respiratory: Reports: no symptoms Cardiovascular: Reports: no symptoms Gastrointestinal/Abdominal: Reports: no symptoms Allergies: Coded Allergies: ACETAMINOPHEN (Verified Adverse Reaction, Unknown, Nausea, 08/15/17) CODEINE (Verified Adverse Reaction, Unknown, nausea, 08/15/17) HYDROCODONE (Verified Adverse Reaction, Unknown, Nausea, 08/15/17) Objective Last 24 Hour Vital Signs Date Time Temp Pulse Resp B/P (MAP) Pulse Ox O2 Delivery O2 Flow Rate FiO2 08/08/19 21:00 Room Air 08/08/19 20:00 97.9 80 16 139/86 (103) 98 08/08/19 16:00 98.2 92 20 134/85 (101) 95 08/08/19 12:00 97.7 84 20 130/89 (103) 96 08/08/19 09:43 96 146/85 08/08/19 09:43 146/85 08/08/19 09:43 96 146/85 08/08/19 09:00 Room Air 08/08/19 08:00 97.7 96 20 146/85 (105) 96 Intake and Output 08/08/19 08/09/19 18:59 06:59 Intake Total 1447.5 ml 1110.0 ml Balance 1447.5 ml 1110.0 ml Intake Oral 800 ml 400 ml IV Total 647.5 ml 710.0 ml # Voids 4 4 # Bowel Movements 2 General Appearance: no acute distress HEENT: normocephalic Respiratory: chest wall non-tender Cardiovascular: normal peripheral pulses Abdomen: normal bowel sounds Microbiology Date/Time Source Procedure Growth Status 08/06/19 22:15 Urine,Clean Catch Urine Culture - Preliminary Gram Negative Zbigniew Resulted Laboratory Tests 08/08/19 08:10: White Blood Count 14.1H, Red Blood Count 3.76L, Hemoglobin 12.1, Hematocrit 34.6L, Mean Corpuscular Volume 92#, Mean Corpuscular Hemoglobin 32.2H, Mean Corpuscular Hemoglobin Concent 35.0, Red Cell Distribution Width 10.8L, Platelet Count 181, Mean Platelet Volume 8.4, Neutrophils (%) (Auto) 73.5, Lymphocytes (%) (Auto) 12.1L, Monocytes (%) (Auto) 12.8H, Eosinophils (%) (Auto ) 0.5, Basophils (%) (Auto) 1.1, Sodium Level 135L, Potassium Level 3.9, Chloride Level 101, Carbon Dioxide Level 23, Anion Gap 11, Blood Urea Nitrogen 13, Creatinine 0.9, Estimat Glomerular Filtration Rate > 60, Glucose Level 383H , Calcium Level 8.0L, Phosphorus Level 2.1L, Magnesium Level 2.4, Thyroid Stimulating Hormone (TSH) 0.767, Free Thyroxine 1.06 Current Medications Medications (Trade) Dose Ordered Sig/Jenifer Route PRN Reason Start Time Stop Time Status Last Admin Dose Admin Amlodipine Besylate (Norvasc) 10 mg DAILY ORAL 08/07/19 09:00 09/06/19 08:59 08/08/19 09:43 Dextrose (Dextrose 50%) 25 ml Q30M PRN IV Hypoglycemia 08/07/19 03:15 11/05/19 03:14 Dextrose (Dextrose 50%) 50 ml Q30M PRN IV Hypoglycemia 08/07/19 03:15 11/05/19 03:14 Docusate Sodium (Colace) 100 mg TWICE A DAY ORAL 08/07/19 09:00 09/06/19 08:59 08/08/19 17:34 Insulin Aspart (NovoLOG) BEFORE MEALS AND HS SUBQ 08/07/19 06:30 11/05/19 06:29 08/09/19 06:26 Lactulose (Cephulac) 20 gm TIDPRN PRN ORAL Constipation 08/07/19 13:15 09/06/19 13:14 08/07/19 14:12 Losartan Potassium (Cozaar) 50 mg DAILY ORAL 08/07/19 09:00 09/06/19 08:59 08/08/19 09:43 Metformin HCl (Glucophage) 850 mg TIAC ORAL 08/07/19 16:30 09/06/19 16:29 08/09/19 06:21 Metoprolol Succinate (Toprol XL) 100 mg DAILY ORAL 08/07/19 09:00 11/05/19 08:59 08/08/19 09:43 Piperacillin Sod/ Tazobactam Sod 3.375 gm/Sodium Chloride 110 ml @ 27.5 mls/hr EVERY 8 HOURS IVPB 08/07/19 14:00 08/12/19 13:59 08/09/19 06:20 Sitagliptin Phosphate (Januvia) 100 mg ACBREAKFAST ORAL 08/08/19 06:30 09/07/19 06:29 08/09/19 06:20 Sodium Chloride 1,000 ml @ 50 mls/hr Q20H IV 08/08/19 14:45 09/07/19 14:44 08/08/19 15:56 Zolpidem Tartrate (Ambien) 5 mg HSPRN PRN ORAL Insomnia 08/07/19 03:15 08/14/19 03:14 08/08/19 21:12 Assessment/Plan Assessment/Plan IMPRESSION: 1. Urinary tract infection. 2. New-onset diabetes mellitus. 3. Hyponatremia 4. Rule out hypothyroidism. 5. Hypochloremia 6. Renal insufficiency. DISCUSSION: Continue IV fluid hydration, insulin sliding scale. Broad-spectrum antibiotics. Seen by ID and Nephrology. Added stool softeners. Continue metformin and Januvia, I will follow. Await COVID 19 pcr Robel Arcos M.D. Robel Arcos MD August 09, 2019 07:44
[2019-08-09 08:00] VITALS: BP 161/75
[2019-08-09 08:35] LABS: HEMATOCRIT 33.4 % (37.0-47.0); HEMOGLOBIN 11.6 G/DL (12.0-16.0); MEAN CORPUSCULAR VOLUME 92 FL (80-99); PLATELET COUNT 173 K/UL (150-450); RED BLOOD COUNT 3.64 M/UL (4.20-5.40); RED CELL DISTRIBUTION WIDTH 10.9 % (11.6-14.8); WHITE BLOOD COUNT 14.8 K/UL (4.8-10.8)
[2019-08-09 08:57] LABS: ANION GAP 12 mmol/L (5-15); BLOOD UREA NITROGEN 8 mg/dL (7-18); CALCIUM 8.1 MG/DL (8.5-10.1); CARBON DIOXIDE 23 MMOL/L (21-32); CHLORIDE 101 MMOL/L (98-107); CREATININE 0.8 MG/DL (0.55-1.30); POTASSIUM 3.2 MMOL/L (3.5-5.1); SODIUM 136 MMOL/L (136-145)
[2019-08-09] MEDS: Losartan 50mg tab ORAL SCH (09:11)
[2019-08-09] MEDS: Docusate 100mg cap ORAL SCH ×2 (09:11→17:31)
[2019-08-09] MEDS: Metoprolol Succinate XL 100mg tab ORAL SCH (09:11)
[2019-08-09 09:19] LABS: PHOSPHORUS 2.6 MG/DL (2.5-4.9)
--- NOTE | 2019-08-09 11:26 | Nephrology Progress Note ---
Assessment/Plan Plan #STEPHANIE due to pre-renal azotemia in the setting of volume depletion and hyperglycemia #pseudohyponatremia in the setting of hyperglycemia #anionn gap metabolic acidosis due to DKA #UTI #DM #Leukocytosis #HLD - DC IVF - monitor BG, electrolytes and renal function closely - continue zosyn - follow urine culture - januvia 100mg daily - metformin 850 TID - ISS - on metop 100mg daily - amlodipine 10mg daily - increase losartan to 100mg daily - monitor blood pressure - monitor BMP, mag and phos daily - avoid nephrotoxins Time spent 70 minutes Subjective ROS Limited/Unobtainable: No Constitutional: Denies: no symptoms, chills, diaphoresis, fever, malaise, weakness, other HEENT: Denies: no symptoms, eye pain, blurred vision, tearing, double vision, ear pain, ear discharge, nose pain, nose congestion, throat pain, throat swelling, mouth pain, mouth swelling, other Genitourinary: Denies: no symptoms, burning, discharge, frequency, flank pain, hematuria, incontinence, pain, urgency, other Neurologic/Psychiatric: Denies: no symptoms, anxiety, depressed, emotional problems, headache, numbness, paresthesia, pre-existing deficit, seizure, tingling, tremors, weakness, other Subjective Feeling much better today BG trend downtrending less dysuria Objective Objective Last 24 Hour Vital Signs Date Time Temp Pulse Resp B/P (MAP) Pulse Ox O2 Delivery O2 Flow Rate FiO2 08/09/19 09:11 94 161/75 08/09/19 09:11 161/75 08/09/19 09:10 94 161/75 08/09/19 09:00 Room Air 08/09/19 08:00 97.9 94 18 161/75 (103) 95 08/08/19 21:00 Room Air 08/08/19 20:00 97.9 80 16 139/86 (103) 98 08/08/19 16:00 98.2 92 20 134/85 (101) 95 08/08/19 12:00 97.7 84 20 130/89 (103) 96 Intake and Output 08/08/19 08/09/19 19:00 07:00 Intake Total 1497.5 ml 1110.0 ml Balance 1497.5 ml 1110.0 ml Intake Oral 800 ml 400 ml IV Total 697.5 ml 710.0 ml # Voids 4 4 # Bowel Movements 2 Laboratory Tests 08/09/19 07:13: White Blood Count 14.8H, Red Blood Count 3.64L, Hemoglobin 11.6L, Hematocrit 33.4L, Mean Corpuscular Volume 92, Mean Corpuscular Hemoglobin 31.8H, Mean Corpuscular Hemoglobin Concent 34.6, Red Cell Distribution Width 10.9L, Platelet Count 173, Mean Platelet Volume 7.1, Neutrophils (%) (Auto) , Lymphocytes (%) (Auto) , Monocytes (%) (Auto) , Eosinophils (%) (Auto) , Basophils (%) (Auto) , Differential Total Cells Counted 100, Neutrophils % ( Manual) 70, Lymphocytes % (Manual) 21, Monocytes % (Manual) 8, Eosinophils % ( Manual) 1, Basophils % (Manual) 0, Band Neutrophils 0, Platelet Estimate Adequate, Platelet Morphology Normal, Hypochromasia 1+, Sodium Level 136, Potassium Level 3.2L, Chloride Level 101, Carbon Dioxide Level 23, Anion Gap 12 , Blood Urea Nitrogen 8, Creatinine 0.8, Estimat Glomerular Filtration Rate > 60 , Glucose Level 299H, Calcium Level 8.1L, Phosphorus Level 2.6, Magnesium Level 2.1 Height (Feet): 5 Height (Inches): 1.00 Weight (Pounds): 215 Katy Steven M.D. August 09, 2019 11:26
[2019-08-09 12:00] VITALS: BP 150/89
--- NOTE | 2019-08-09 13:42 | Infectious Diseases Prog Note ---
Assessment/Plan Assessment/Plan A: 1. Klebsiella Urinary tract infection. 2. Newly diagnosed diabetes. 3. Hypertension. 4. Morbid obesity PLAN: 1. We will order urine cultures. 2. Change Zosyn to Amoxicillin 3. Continue isolation. 4. COVID-19 test is pending. Subjective ROS Limited/Unobtainable: No Constitutional: Reports: no symptoms Respiratory: Reports: no symptoms Gastrointestinal/Abdominal: Reports: no symptoms Genitourinary: Reports: frequency Allergies: Coded Allergies: ACETAMINOPHEN (Verified Adverse Reaction, Unknown, Nausea, 08/15/17) CODEINE (Verified Adverse Reaction, Unknown, nausea, 08/15/17) HYDROCODONE (Verified Adverse Reaction, Unknown, Nausea, 08/15/17) Objective Vital Signs Last 24 Hour Vital Signs Date Time Temp Pulse Resp B/P (MAP) Pulse Ox O2 Delivery O2 Flow Rate FiO2 08/09/19 12:00 98.0 88 18 150/89 (109) 98 08/09/19 09:11 94 161/75 08/09/19 09:11 161/75 08/09/19 09:10 94 161/75 08/09/19 09:00 Room Air 08/09/19 08:00 97.9 94 18 161/75 (103) 95 08/08/19 21:00 Room Air 08/08/19 20:00 97.9 80 16 139/86 (103) 98 08/08/19 16:00 98.2 92 20 134/85 (101) 95 Height (Feet): 5 Height (Inches): 1.00 Weight (Pounds): 215 General Appearance: no acute distress, other - obese Respiratory/Chest: no respiratory distress Cardiovascular: normal rate Abdomen: soft, non tender Extremities: no edema Neurologic/Psychiatric: alert, oriented x 3, responsive Microbiology Date/Time Source Procedure Growth Status 08/06/19 22:15 Urine,Clean Catch Urine Culture - Final Klebsiella Pneumoniae Complete Laboratory Tests Test 08/09/19 07:13 White Blood Count 14.8 K/UL (4.8-10.8) H Red Blood Count 3.64 M/UL (4.20-5.40) L Hemoglobin 11.6 G/DL (12.0-16.0) L Hematocrit 33.4 % (37.0-47.0) L Mean Corpuscular Volume 92 FL (80-99) Mean Corpuscular Hemoglobin 31.8 PG (27.0-31.0) H Mean Corpuscular Hemoglobin Concent 34.6 G/DL (32.0-36.0) Red Cell Distribution Width 10.9 % (11.6-14.8) L Platelet Count 173 K/UL (150-450) Mean Platelet Volume 7.1 FL (6.5-10.1) Neutrophils (%) (Auto) % (45.0-75.0) Lymphocytes (%) (Auto) % (20.0-45.0) Monocytes (%) (Auto) % (1.0-10.0) Eosinophils (%) (Auto) % (0.0-3.0) Basophils (%) (Auto) % (0.0-2.0) Differential Total Cells Counted 100 Neutrophils % (Manual) 70 % (45-75) Lymphocytes % (Manual) 21 % (20-45) Monocytes % (Manual) 8 % (1-10) Eosinophils % (Manual) 1 % (0-3) Basophils % (Manual) 0 % (0-2) Band Neutrophils 0 % (0-8) Platelet Estimate Adequate Platelet Morphology Normal Hypochromasia 1+ Sodium Level 136 MMOL/L (136-145) Potassium Level 3.2 MMOL/L (3.5-5.1) L Chloride Level 101 MMOL/L (98-107) Carbon Dioxide Level 23 MMOL/L (21-32) Anion Gap 12 mmol/L (5-15) Blood Urea Nitrogen 8 mg/dL (7-18) Creatinine 0.8 MG/DL (0.55-1.30) Estimat Glomerular Filtration Rate > 60 mL/min (>60) Glucose Level 299 MG/DL (74-106) H Calcium Level 8.1 MG/DL (8.5-10.1) L Phosphorus Level 2.6 MG/DL (2.5-4.9) Magnesium Level 2.1 MG/DL (1.8-2.4) Current Medications Medications (Trade) Dose Ordered Sig/Jenifer Route PRN Reason Start Time Stop Time Status Last Admin Dose Admin Amlodipine Besylate (Norvasc) 10 mg DAILY ORAL 08/07/19 09:00 09/06/19 08:59 08/09/19 09:10 Dextrose (Dextrose 50%) 25 ml Q30M PRN IV Hypoglycemia 08/07/19 03:15 11/05/19 03:14 Dextrose (Dextrose 50%) 50 ml Q30M PRN IV Hypoglycemia 08/07/19 03:15 11/05/19 03:14 Docusate Sodium (Colace) 100 mg TWICE A DAY ORAL 08/07/19 09:00 09/06/19 08:59 08/09/19 09:11 Insulin Aspart (NovoLOG) BEFORE MEALS AND HS SUBQ 08/07/19 06:30 11/05/19 06:29 08/09/19 11:56 Lactulose (Cephulac) 20 gm TIDPRN PRN ORAL Constipation 08/07/19 13:15 09/06/19 13:14 08/07/19 14:12 Losartan Potassium (Cozaar) 100 mg DAILY ORAL 08/10/19 09:00 09/06/19 08:59 Metformin HCl (Glucophage) 850 mg TIAC ORAL 08/07/19 16:30 09/06/19 16:29 08/09/19 11:55 Metoprolol Succinate (Toprol XL) 100 mg DAILY ORAL 08/07/19 09:00 11/05/19 08:59 08/09/19 09:11 Piperacillin Sod/ Tazobactam Sod 3.375 gm/Sodium Chloride 110 ml @ 27.5 mls/hr EVERY 8 HOURS IVPB 08/07/19 14:00 08/12/19 13:59 08/09/19 06:20 Sitagliptin Phosphate (Januvia) 100 mg ACBREAKFAST ORAL 08/08/19 06:30 09/07/19 06:29 08/09/19 06:20 Zolpidem Tartrate (Ambien) 5 mg HSPRN PRN ORAL Insomnia 08/07/19 03:15 08/14/19 03:14 08/08/19 21:12 Rom Barnes MD August 09, 2019 13:42
[2019-08-09 16:00] VITALS: BP 137/85
[2019-08-09 20:00] VITALS: BP 154/96
[2019-08-09] MEDS: Zolpidem 5mg tab ORAL PRN (21:15)
[2019-08-09 21:31] VITALS: BP 154/96
[2019-08-10] VITALS: BP 138/86
[2019-08-10] MEDS: NovoLOG Insulin Flexpen SUBQ SCH ×2 (06:27→11:30)
[2019-08-10 08:42] VITALS: BP 162/95
[2019-08-10 08:57] VITALS: BP 162/95
[2019-08-10] MEDS: Metoprolol Succinate XL 100mg tab ORAL SCH (08:57)
[2019-08-10] MEDS ORDERED: Losartan 50mg tab ORAL SCH (09:00)
[2019-08-10] MEDS: Docusate 100mg cap ORAL SCH (09:00)
--- NOTE | 2019-08-10 09:11 | Nephrology Progress Note ---
Assessment/Plan Plan #STEPHANIE due to pre-renal azotemia in the setting of volume depletion and hyperglycemia #pseudohyponatremia in the setting of hyperglycemia #anionn gap metabolic acidosis due to DKA #UTI #DM #Leukocytosis #HLD - DC IVF - monitor BG, electrolytes and renal function closely - continue zosyn - follow urine culture - januvia 100mg daily - metformin 850 TID - ISS - on metop 100mg daily - amlodipine 10mg daily - increase losartan to 100mg daily - monitor blood pressure - monitor BMP, mag and phos daily - avoid nephrotoxins Time spent 70 minutes Subjective ROS Limited/Unobtainable: No Constitutional: Denies: no symptoms, chills, diaphoresis, fever, malaise, weakness, other HEENT: Denies: no symptoms, eye pain, blurred vision, tearing, double vision, ear pain, ear discharge, nose pain, nose congestion, throat pain, throat swelling, mouth pain, mouth swelling, other Genitourinary: Denies: no symptoms, burning, discharge, frequency, flank pain, hematuria, incontinence, pain, urgency, other Neurologic/Psychiatric: Denies: no symptoms, anxiety, depressed, emotional problems, headache, numbness, paresthesia, pre-existing deficit, seizure, tingling, tremors, weakness, other Subjective Feeling much better today BG trend downtrending less dysuria Objective Objective Last 24 Hour Vital Signs Date Time Temp Pulse Resp B/P (MAP) Pulse Ox O2 Delivery O2 Flow Rate FiO2 08/10/19 08:57 93 162/95 08/10/19 08:55 162/95 08/10/19 08:55 93 162/95 08/10/19 08:42 96.1 95 18 162/95 (117) 98 08/10/19 00:00 97.9 90 18 138/86 (103) 97 08/09/19 21:31 98.4 90 17 154/96 (115) 99 08/09/19 21:00 Room Air 08/09/19 20:00 98.4 90 17 154/96 (115) 99 08/09/19 16:00 98.2 69 18 137/85 (102) 95 08/09/19 12:00 98.0 88 18 150/89 (109) 98 Intake and Output 5/31/20 6/1/20 18:59 06:59 Intake Total 770.0 ml 600 ml Balance 770.0 ml 600 ml Intake Oral 460 ml 600 ml IV Total 310.0 ml # Voids 4 # Bowel Movements 1 Height (Feet): 5 Height (Inches): 1.00 Weight (Pounds): 215 Katy Steven M.D. Aug 10, 2019 09:11
--- NOTE | 2019-08-10 10:35 | Pulmonology Progress Note ---
Subjective ROS Limited/Unobtainable: No Interval Events: None new; sugars better Constitutional: Reports: no symptoms HEENT: Repors: no symptoms Respiratory: Reports: no symptoms Cardiovascular: Reports: no symptoms Gastrointestinal/Abdominal: Reports: no symptoms Allergies: Coded Allergies: ACETAMINOPHEN (Verified Adverse Reaction, Unknown, Nausea, 08/15/17) CODEINE (Verified Adverse Reaction, Unknown, nausea, 08/15/17) HYDROCODONE (Verified Adverse Reaction, Unknown, Nausea, 08/15/17) Objective Last 24 Hour Vital Signs Date Time Temp Pulse Resp B/P (MAP) Pulse Ox O2 Delivery O2 Flow Rate FiO2 08/10/19 09:57 Room Air 08/10/19 08:57 93 162/95 08/10/19 08:55 162/95 08/10/19 08:55 93 162/95 08/10/19 08:42 96.1 95 18 162/95 (117) 98 08/10/19 00:00 97.9 90 18 138/86 (103) 97 08/09/19 21:31 98.4 90 17 154/96 (115) 99 08/09/19 21:00 Room Air 08/09/19 20:00 98.4 90 17 154/96 (115) 99 08/09/19 16:00 98.2 69 18 137/85 (102) 95 08/09/19 12:00 98.0 88 18 150/89 (109) 98 Intake and Output 08/09/19 08/10/19 19:00 07:00 Intake Total 720.0 ml 600 ml Balance 720.0 ml 600 ml Intake Oral 460 ml 600 ml IV Total 260.0 ml # Voids 4 # Bowel Movements 1 General Appearance: no acute distress HEENT: normocephalic Respiratory: chest wall non-tender Cardiovascular: normal peripheral pulses Abdomen: normal bowel sounds Laboratory Tests 08/10/19 10:10: Sodium Level [Pending], Potassium Level [Pending], Chloride Level [Pending], Carbon Dioxide Level [Pending], Blood Urea Nitrogen [Pending], Creatinine [ Pending], Estimat Glomerular Filtration Rate [Pending], Glucose Level [Pending] , Calcium Level [Pending], Phosphorus Level [Pending], Magnesium Level [Pending] Current Medications Medications (Trade) Dose Ordered Sig/Jenifer Route PRN Reason Start Time Stop Time Status Last Admin Dose Admin Amlodipine Besylate (Norvasc) 10 mg DAILY ORAL 08/07/19 09:00 09/06/19 08:59 08/10/19 08:55 Amoxicillin (Amoxil) 500 mg EVERY 8 HOURS ORAL 08/09/19 14:00 08/16/19 13:59 08/10/19 06:26 Dextrose (Dextrose 50%) 25 ml Q30M PRN IV Hypoglycemia 08/07/19 03:15 11/05/19 03:14 Dextrose (Dextrose 50%) 50 ml Q30M PRN IV Hypoglycemia 08/07/19 03:15 11/05/19 03:14 Docusate Sodium (Colace) 100 mg TWICE A DAY ORAL 08/07/19 09:00 09/06/19 08:59 08/09/19 17:31 Insulin Aspart (NovoLOG) BEFORE MEALS AND HS SUBQ 08/07/19 06:30 11/05/19 06:29 08/10/19 06:27 Lactulose (Cephulac) 20 gm TIDPRN PRN ORAL Constipation 08/07/19 13:15 09/06/19 13:14 08/07/19 14:12 Losartan Potassium (Cozaar) 100 mg DAILY ORAL 08/10/19 09:00 09/06/19 08:59 08/10/19 08:55 Metformin HCl (Glucophage) 850 mg TIAC ORAL 08/07/19 16:30 09/06/19 16:29 08/10/19 06:26 Metoprolol Succinate (Toprol XL) 100 mg BID ORAL 08/10/19 18:00 11/05/19 08:59 Sitagliptin Phosphate (Januvia) 100 mg ACBREAKFAST ORAL 08/08/19 06:30 09/07/19 06:29 08/10/19 06:26 Zolpidem Tartrate (Ambien) 5 mg HSPRN PRN ORAL Insomnia 08/07/19 03:15 08/14/19 03:14 08/09/19 21:15 Assessment/Plan Assessment/Plan IMPRESSION: 1. Urinary tract infection. Klebsiella 2. New-onset diabetes mellitus. 3. Hyponatremia corrected 4. Euthyroid 5. Hypochloremia 6. Renal insufficiency. DISCUSSION: Has negative COVID 19 pcr Will dc home PO abx Yamilka Clifton Omar Syed MD Aug 10, 2019 10:35
[2019-08-10] MEDS ORDERED: LEVAQUIN500 MG ORAL (10:37)
[2019-08-10] MEDS ORDERED: METOPROLOL SUC100 MG ORAL (10:37)
[2019-08-10] MEDS ORDERED: JANUVIA100 MG ORAL (10:37)
[2019-08-10] MEDS ORDERED: GLUCOPHAGE850 MG ORAL (10:37)
[2019-08-10] MEDS ORDERED: AMLODIPINE BESY10 MG ORAL (10:37)
[2019-08-10] MEDS ORDERED: LOSARTAN POTASS50 MG ORAL (10:37)
[2019-08-10 10:38] LABS: ANION GAP 11 mmol/L (5-15); BLOOD UREA NITROGEN 4 mg/dL (7-18); CALCIUM 8.6 MG/DL (8.5-10.1); CARBON DIOXIDE 23 MMOL/L (21-32); CHLORIDE 99 MMOL/L (98-107); CREATININE 0.8 MG/DL (0.55-1.30); PHOSPHORUS 2.6 MG/DL (2.5-4.9); SODIUM 133 MMOL/L (136-145)
--- NOTE | 2019-08-10 11:07 | Infectious Diseases Prog Note ---
Assessment/Plan Assessment/Plan antibiotics : po amoxicillin A 1. klebsiella UTI 2. diabetes mellitus 3. hypertension 4. COVID 19 negative P 1. continue po amoxicillin 3 more days 2. will follow up cultures Subjective Constitutional: Denies: fever, chills Respiratory: Denies: shortness of breath, dry cough Gastrointestinal/Abdominal: Denies: nausea, vomiting, diarrhea Musculoskeletal: Denies: pain Allergies: Coded Allergies: ACETAMINOPHEN (Verified Adverse Reaction, Unknown, Nausea, 08/15/17) CODEINE (Verified Adverse Reaction, Unknown, nausea, 08/15/17) HYDROCODONE (Verified Adverse Reaction, Unknown, Nausea, 08/15/17) Objective Vital Signs Last 24 Hour Vital Signs Date Time Temp Pulse Resp B/P (MAP) Pulse Ox O2 Delivery O2 Flow Rate FiO2 08/10/19 09:57 Room Air 08/10/19 08:57 93 162/95 08/10/19 08:55 162/95 08/10/19 08:55 93 162/95 08/10/19 08:42 96.1 95 18 162/95 (117) 98 08/10/19 00:00 97.9 90 18 138/86 (103) 97 08/09/19 21:31 98.4 90 17 154/96 (115) 99 08/09/19 21:00 Room Air 08/09/19 20:00 98.4 90 17 154/96 (115) 99 08/09/19 16:00 98.2 69 18 137/85 (102) 95 08/09/19 12:00 98.0 88 18 150/89 (109) 98 Height (Feet): 5 Height (Inches): 1.00 Weight (Pounds): 215 Respiratory/Chest: lungs clear Cardiovascular: normal rate, regular rhythm, no gallop/murmur Abdomen: soft, non tender Extremities: no edema Laboratory Tests Test 08/10/19 10:10 Sodium Level 133 MMOL/L (136-145) L Potassium Level 4.0 MMOL/L (3.5-5.1) Chloride Level 99 MMOL/L (98-107) Carbon Dioxide Level 23 MMOL/L (21-32) Anion Gap 11 mmol/L (5-15) Blood Urea Nitrogen 4 mg/dL (7-18) L Creatinine 0.8 MG/DL (0.55-1.30) Estimat Glomerular Filtration Rate > 60 mL/min (>60) Glucose Level 372 MG/DL (74-106) H Calcium Level 8.6 MG/DL (8.5-10.1) Phosphorus Level 2.6 MG/DL (2.5-4.9) Magnesium Level 2.1 MG/DL (1.8-2.4) Current Medications Medications (Trade) Dose Ordered Sig/Jenifer Route PRN Reason Start Time Stop Time Status Last Admin Dose Admin Amlodipine Besylate (Norvasc) 10 mg DAILY ORAL 08/07/19 09:00 09/06/19 08:59 08/10/19 08:55 Amoxicillin (Amoxil) 500 mg EVERY 8 HOURS ORAL 08/09/19 14:00 08/16/19 13:59 08/10/19 06:26 Dextrose (Dextrose 50%) 25 ml Q30M PRN IV Hypoglycemia 08/07/19 03:15 11/05/19 03:14 Dextrose (Dextrose 50%) 50 ml Q30M PRN IV Hypoglycemia 08/07/19 03:15 11/05/19 03:14 Docusate Sodium (Colace) 100 mg TWICE A DAY ORAL 08/07/19 09:00 09/06/19 08:59 08/09/19 17:31 Insulin Aspart (NovoLOG) BEFORE MEALS AND HS SUBQ 08/07/19 06:30 11/05/19 06:29 08/10/19 06:27 Lactulose (Cephulac) 20 gm TIDPRN PRN ORAL Constipation 08/07/19 13:15 09/06/19 13:14 08/07/19 14:12 Losartan Potassium (Cozaar) 100 mg DAILY ORAL 08/10/19 09:00 09/06/19 08:59 08/10/19 08:55 Metformin HCl (Glucophage) 850 mg TIAC ORAL 08/07/19 16:30 09/06/19 16:29 08/10/19 06:26 Metoprolol Succinate (Toprol XL) 100 mg BID ORAL 08/10/19 18:00 11/05/19 08:59 Sitagliptin Phosphate (Januvia) 100 mg ACBREAKFAST ORAL 08/08/19 06:30 09/07/19 06:29 08/10/19 06:26 Zolpidem Tartrate (Ambien) 5 mg HSPRN PRN ORAL Insomnia 08/07/19 03:15 08/14/19 03:14 08/09/19 21:15 Velvet Anne MD Aug 10, 2019 11:06
[2019-08-10] MEDS ORDERED: Metoprolol Succinate XL 100mg tab ORAL SCH (18:00)
--- NOTE | 2019-08-11 08:24 | Discharge Summary ---
Discharge Summary Discharge Summary _ DATE OF ADMISSION: 08/07/2019 DATE OF DISCHARGE: 08/10/2019 DISCHARGED BY: Dr. Arcos REASON FOR ADMISSION: 44 years old female with past medical history of hypertension, morbid obesity, presented with generalized weakness , nausea and vomiting for the last 2 to 3 days. She reported poor appetite. She denied diarrhea. She denied fevers, but reported chills. No chest pain. No shortness of breath or cough. No sick contacts. She vomited initially in ED, but was able to keep the popsicles in. Patient reported family history of diabetes. Upon evaluation vital signs were stable. Laboratory work-up revealed leukocytosis with WBC 17.8 , stable hemoglobin, hematocrit and platelet count. Glucose 832. Anion gap 18. BUN 25, creatinine 1.5. Potassium 4.7. Sodium 123. Troponin negative. Urinalysis revealed pyuria, many bacteria, moderate yeast, +1 leukocyte esterase ,+3 ketones, +1 protein, +4 glucose. Urine test was negative Chest x-ray revealed minimal linear basilar atelectasis. In emergency department patient started on the IV hydration , received insulin , Diflucan, empiric antibiotic and admitted for further management. CONSULTANTS: ID specialist Dr. Anne gaming cashier Dr. Steven [facility] COURSE: Patient admitted and started on generous IV hydration and empiric antibiotics. Blood sugar was managed with insulin. Patient also started on metformin and Januvia ( after renal function stabilized) . Hemoglobin A1c 11.2 . Diabetic diet provided. Diabetic teaching provided to patient during the stay in the hospital and upon discharge. Real Estate Professor followed. Renal parameters and electrolytes were closely monitored , nephrotoxic's were avoided . Hyponatremia resolved, sodium up to 135. Creatinine from 1.5 down to 0.8, BUN from 25 down to 4. According to gaming cashier acute kidney injury was due to prerenal azotemia in the setting of volume depletion and hyperglycemia. Hyponatremia was pseudohyponatremia in the setting of hyperglycemia. Blood pressure was managed with calcium channel miko, beta-miko, and later losartan was added . Blood sugar improved. TSH within normal limits. Urine culture revealed Klebsiella. Antibiotic changed to oral upon discharge to complete the course. Patient clinically stabilized and was ready for discharge home. Outpatient follow-up with a primary care provider in 1 week. FINAL DIAGNOSES: New onset of type 2 diabetes Dehydration STEPHANIE due to dehydration -resolved Morbid obesity Klebsiella UTI Hyponatremia-resolved DISCHARGE MEDICATIONS: See Medication Reconciliation list. DISCHARGE INSTRUCTIONS: Patient was discharged home. Follow-up with a primary care provider in 1 week. I have been assigned to dictate discharge summary for this account. I was not involved in the patient's management. Mar Damon NP Aug 11, 2019 08:24
== END 2019-08-10 12:00 | disposition home or self-care (01) | DRG 420 ==
LOC: EMR 22:10 → 4E 08-07 00:32 → EDBEDREQ 08-07 01:02
DX: E11.10 Type 2 diabetes mellitus with ketoacidosis without coma (principal); N39.0 Urinary tract infection, site not specified; N17.9 Acute kidney failure, unspecified; E87.1 Hypo-osmolality and hyponatremia; B96.1 Klebsiella pneumoniae [K. pneumoniae] as the cause of diseases classified elsewhere; E87.8 Other disorders of electrolyte and fluid balance, not elsewhere classified; Z68.41 Body mass index [BMI] 40.0-44.9, adult; E11.22 Type 2 diabetes mellitus with diabetic chronic kidney disease; Z88.6 Allergy status to analgesic agent; I10 Essential (primary) hypertension; E86.0 Dehydration; E66.01 Morbid (severe) obesity due to excess calories; E78.5 Hyperlipidemia, unspecified
CPT/HCPCS: 36415; 71045; 80048; 80053; 80061; 81001; 81025; 82962; 83036; 83735; 84100; 84439; 84443; 84484; 85007; 85025; 87086; 87181; 87635; 96361; 96365; 96375; 96376; 99285; J2405; J7030; J8499